=== PATIENT | male | born 1970 | race Hispanic/Latino ===

== ENCOUNTER 2021-01-14 06:54 | Day surgery (SDC) | payer OTHER ==
[2021-01-14] MEDS ORDERED: SODIUM CHLORIDE 0.9% 1000 ML 1,000 ML IV SCH (07:00)
[2021-01-14] MEDS ORDERED: LIDOCAINE MPF (2%) 20 MG/1 ML VIAL 5 ML ONE (07:59)
[2021-01-14] MEDS ORDERED: propofoL 200 MG/20 ML VIAL IV ONE ×3 (08:00→08:53)
--- NOTE | 2021-01-14 08:32 | Anesthesia Consultation ---
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
--- NOTE | 2021-01-14 08:32 | Anesthesia Day of Surgery ---
Anesthesia Day of Surgery - Day of Surgery Patient Examined: Yes Patient H&P Reviewed: Yes Patient is NPO: Yes
--- NOTE | 2021-01-14 09:09 | Procedure Note ---
Date of procedure: 01/14/21 Pre-op diagnosis: Colon Polyp Screening/ F/H/O Colon Cancer (father) Post-op diagnosis: other (No Colon Polyps noted/ Few, Scattered Left Colon Diverticuli/ Mild to Moderate Internal Hemorrhoid) Procedure: Colonoscopy Anesthesia: MAC Surgeon: TRINITY HOLLOWAY Estimated blood loss: none Pathology: none Condition: stable Disposition: same day (Encourage fiber intake. Resume home medication and follow up in 1 to 2 weeks ([phone]).)
--- NOTE | 2021-01-14 09:31 | Operative Report ---
DATE OF SURGERY: 01/14/2021 PROCEDURE: Colonoscopy. INDICATIONS: This is a 50-year-old white male with an underlying history of chronic hepatitis C, porphyria cutanea tarda, who had a colonoscopy done as part of colon polyp screening. He does have a family history of cancer. Father had colon cancer. Mother had breast cancer. DESCRIPTION OF PROCEDURE: Procedure was done after getting informed consent with MAC anesthesia. Initial rectal examination was unremarkable. The instrument was passed through the rectum onto the cecum, which was identified by the ileocecal valve and appendiceal orifice. Visualization was fair to good. The cecum was also examined on the retroverted view. No additional pathology was noted. Cecum, ascending colon, transverse colon, descending colon, and sigmoid showed normal mucosa. There were a few scattered minor diverticula noted in the left colon and rectum showed some mild to moderate internal hemorrhoid on the retroverted view. No biopsies were done. There was no bleeding associated with the procedure. ASSESSMENT: Colon polyp screening, history of chronic hepatitis C and porphyria cutanea tarda. No colon polyps noted. Few left colon diverticula and mild to moderate internal hemorrhoids. The patient will be encouraged to take fiber supplements. Resume home medication. Follow up in the office in 1-2 weeks' time. Procedure was done in the GI lab with assistance of the GI lab team, which included the GI nurse, eye technician and with assistance of anesthesia. TID: [id number] RECEIPT: [id number] YAZMIN
[2021-01-14 10:02] VITALS: BP 164/98
--- NOTE | 2021-01-14 11:17 | Post Anesthesia Evaluation ---
- Post Anesthesia Evaluation Patient Participated: Yes Airway Patent: Yes Stable Respiratory Function: Yes Nausea/Vomiting: No Temp > 96.8F: Yes Pain Manageable: Yes Adequeate Hydration: Yes Anesthesia Complications: No
== END 2021-01-14 09:40 | disposition home or self-care (01) ==
LOC: GIO 06:54
DX: Z12.11 Encounter for screening for malignant neoplasm of colon (principal); K64.0 First degree hemorrhoids; K57.30 Diverticulosis of large intestine without perforation or abscess without bleeding; K73.8 Other chronic hepatitis, not elsewhere classified; K63.89 Other specified diseases of intestine; F17.210 Nicotine dependence, cigarettes, uncomplicated; Z79.899 Other long term (current) drug therapy; Z98.890 Other specified postprocedural states; Z88.0 Allergy status to penicillin
CPT/HCPCS: 45378; J2704; J7030